=== PATIENT | female | born 1955 | race Caucasian/White ===

== ENCOUNTER → 2018-02-07 | Day surgery (SDC) | payer OTHER ==
[~2018-02-07] MED LIST: ACETAMINOPHEN 1000 MG/100 ML 100 ML IV ONE; ACETAMINOPHEN/CODEINE 300MG - 30MG TAB ONE; ASPIRIN81 MG; BLACK COHOSH160 MG; CALCIUM WITH V1 EAC2; CLONAZEPAM1 MG PO; CYMBALTA30 MG; DESFLURANE 240 ML BTL INH ONE; DEXAMETHASONE SOD PHOS INJ 4 MG/ML VIAL ONE; EPHEDRINE SULFATE INJ 50 MG/10 ML SYR ONE; EPINEPHRINE HCL INJ 1 MG/ML AMP ONE; FENTANYL CITRATE/PF 100MCG/2 ML INJ ONE; FISH OIL 1,0001 EAC2; FLONASE; FROVA2.5 MG; GLYCOPYRROLATE INJ 1MG/ 5 ML SYR ONE; HYDROCODON-ACE1 EAC9; LIDOCAINE 1% W/EPINEPHRINE 20 ML VIAL ONE; LIDOCAINE HCL (LTA) 4 ML SOLN ONE; LIDOCAINE HCL 2% JELLY 5 ML TUBE ONE; LIDOCAINE HCL 2% LOCAL INJ 5 ML SDV VIAL INJ ONE; LIPITOR20 MG; LOSARTAN POTASS25 MG; MIDAZOLAM HCL 2 MG/2 ML VIAL ONE; MULTIVITAMINS1 EAC7; NEOSTIGMINE 5 MG/5ML SYR ONE; NEXIUM40 MG; NORTRIPTYLINE H25 MG; OFLOXACIN 0.3% (OTIC SOL) 5 ML BTL OT ONE; ONDANSETRON HCL INJ 2 MG/ML VIAL ONE; PROPOFOL IV EMULSION 10 MG/ML 20 ML VIAL ONE; PROPRANOLOL HCL40 MG PO; ROCURONIUM BROMIDE 10 MG/ML 5ML VIAL ONE; SOMA350 MG PO; SYNTHROID75 MCG PO; TOPAMAX25 MG; VICOPROFEN
--- NOTE | 2018-02-07 08:14 | Pre Op History & Physical ---
CHIEF COMPLAINT: Right otitis media, chronic sinusitis, nasal obstruction. HISTORY OF PRESENT ILLNESS: This 62-year-old female has had a cough for about 2 months. Patient also complained of blockage in her ear for about a month. The patient has right tinnitus. She denies any vertigo. Patient has nasal obstruction, postnasal drip discharge from her nose. Her condition has been treated with topical nasal steroid, decongestant, antibiotics with no improvement. A CT scan of paranasal sinuses done before surgery showed the patient has pansinusitis involving the maxillary, frontal and ethmoid sinuses. Deviated septum to the left side was also noted. Effusion was also noted in the right mastoid area. An audiogram that was done showed the patient has left-sided mild to moderate sensorineural hearing loss, right side with moderate to severe sensorineural hearing loss which is mixed type. Speech discrimination 100% bilaterally. Patient has a normal tympanogram on the left and a flat tympanogram on the right. REVIEW OF SYSTEMS: Showed no recent cardiovascular, respiratory or GI problem. PAST MEDICAL HISTORY: Patient has history of hypertension. PAST SURGICAL HISTORY: Patient has previous ovarian cyst removed, carpal tunnel release, knee scope, back surgery, shoulder surgery, tooth surgery. ALLERGIES: PENICILLIN AND DARVOCET. MEDICATIONS: She is on Nexium, Synthroid, , Lipitor, Flonase, Cymbalta, Topamax, propranolol, clonazepam, hydrocodone, Frova, Soma, nitroglycerin, Vicoprofen, baby aspirin, black cohosh. SOCIAL HISTORY: Nonsmoker, nondrinker. FAMILY HISTORY: Noncontributory. PHYSICAL EXAMINATION VITAL SIGNS: Within normal limits. EARS: Shows mucoid effusion on the right side with normal TM on the left. NOSE: Hypertrophy of inferior turbinate. THROAT: Oropharynx and oral cavity showed 2+ tonsils bilaterally with no exudate or debris. NECK: No lymph node or thyroid palpable. CHEST: Good entry bilaterally. CARDIOVASCULAR: S1, S2. No murmur noted. Mrs. Gallo has chronic sinusitis nasal, obstruction and right otitis media which has been resistant to conservative therapy. The suggested treatment is endoscopic sinus surgery, septoplasty, resection of inferior turbinate, possible biopsy of nasopharynx and myringotomy and tubes on the right ear, possible bilateral myringotomy tubes and other necessary procedures. Complication of procedure includes but not limited to bleeding, infection, CSF leak, blindness, double vision, meningitis, septal perforation, septal hematoma, persistent nasal obstruction, persistent nasal crusting, nasal deformity, recurrence of the sinus problem along with TM perforation, persistent drainage from the ear, hearing loss, recurrence of the ear infection. The alternative would be continued observation, continued antibiotic therapy, topical nasal steroid therapy, systemic steroid therapy, decongestant and myringotomy and tubes in the office setting. The patient and her have elected to undergo the surgical procedure. Job#: [id number] DG cc:CHUYITA BEST MD
--- NOTE | 2018-02-07 12:50 | Operative Report ---
DATE OF PROCEDURE: February 07, 2018 CHIEF COMPLAINT: Chronic sinusitis, nasal obstruction, right chronic otitis media. POSTOPERATIVE DIAGNOSES: 1. Chronic sinusitis. 2. Nasal obstruction. 3. Right chronic otitis media. TITLE OF PROCEDURES: 1. Bilateral exploration of the nasofrontal recess area. 2. Bilateral anterior and posterior ethmoidectomy. 3. Bilateral maxillary sinus antrostomy. 4. Bilateral resection of polyps from the maxillary antrum. 5. Bilateral sphenoidectomy. 6. Septoplasty. 7. Biopsy of the nasopharynx on the right side. 8. Examination under anesthesia of the ear with right myringotomy and tubes. ANESTHESIA: Anesthesiology group. INDICATIONS: This 62-year-old female has a few months' history of decreased hearing in the right ear with tinnitus. The patient also has postnasal drip discharge from her nose and chronic cough. Her condition has been treated with antibiotics, topical nasal steroid, decongestant with no improvement. On examination she was noted to have serous effusion on the right ear, a normal TM on the left. Patient was noted to have hypertrophy of the inferior turbinate on both sides. CT scan of paranasal sinuses done before surgery showed the patient has pansinusitis on the right side involving every single sinus on the right and ethmoid and maxillary sinus involvement on the left. A deviated nasal septum on the left side was also noted. It was decided that endoscopic sinus surgery, right myringotomy and tubes, and examination under anesthesia and other necessary procedures would be beneficial for her. PROCEDURE: Patient was taken to the operating room, put under general anesthesia, endotracheally intubated. Nose was injected with 1% Xylocaine with 1:100,000 epinephrine for hemostasis. Epinephrine-soaked pledget was inserted into the nose and subsequently removed. The left paranasal sinuses were approached first. Middle turbinate was medialized. Using the Entellus device, the nasofrontal recess area was entered. The area was irrigated with copious amount of normal saline. Debris and tissue were irrigated out. The bulla ethmoidalis was entered. Anterior and posterior ethmoid sinuses were dissected in a systematic fashion. Polypoid tissue was noted in both the anterior and posterior ethmoid sinus area. Care was taken during dissection to ascertain the orbit was not entered. Sphenoid sinus was entered through a natural ostium. This was enlarged using a microshaver. Polypoid changes in the sphenoid sinus were dissected using the microshaver. Using a curved probe, the natural ostium of the maxillary sinus was entered. This was enlarged anteriorly and posteriorly using a backbiting Ld-Cut forceps respectively. Polyps in the maxillary antrum were dissected using the operating Ld-Cut forceps. The right paranasal sinuses were approached. The middle turbinate was medialized. Some mucopus was noted coming from the posterior ethmoid area. Using the Entellus device, the frontal sinus was entered. The nasofrontal recess area was dilated with the balloon. The frontal sinus was irrigated with copious amount of normal saline. Debris and tissue were irrigated out. No obvious mucopus was noted coming during the irrigation. The bulla ethmoidalis was entered. Anterior and posterior ethmoid sinuses were dissected in a systematic fashion. Polypoid tissue was noted in both the anterior and posterior ethmoid sinus area. Care was taken during dissection to ascertain that the orbit was not entered. The sphenoid sinus was entered through the natural ostium. This was enlarged using a microshaver. Polypoid changes in the sphenoid sinus were dissected using the microshaver. Using a curved probe, the natural ostium of the maxillary sinus was entered. This was enlarged anteriorly and posteriorly using a backbiting Ld-Cut forceps respectively. Mucopus was noted coming from the maxillary sinus. Using a 120-degree tip of the microshaver, the maxillary antrum was dissected. The septoplasty was performed. A septal spur was addressed. An incision was made on the left side of the septum on the spur. A superior and inferior flap was elevated. The collagenous spur was removed using a Burdett elevator and bony spur using a 4 mm straight chisel. The mucoperichondrial flap was reapproximated and kept in place with a Nasopore. The hemitransfixion incision was not made. Nasopore was inserted into the sinus cavities on either side. This was done to prevent synechiae formation and for hemostasis. The myringotomy and tubes were performed. The right ear was examined. The ear canal was debrided. A myringotomy was done in the anterior and superior quadrant. Serous effusion was suctioned out. An Barfield grommet tube was inserted. A similar procedure was carried on in the left side after the ear canal was debrided. A myringotomy was not performed because no effusion was noted in the middle ear cleft. The left TM was not disturbed. The patient tolerated the above procedure well with estimated blood loss about 30 mL. She was given 20 mg of Decadron intraoperatively. Patient was able to be transferred to the recovery room in stable condition. Job#: [id number] EV
== END | disposition home or self-care (01) ==
LOC: OR 08:52
PROVIDERS: ATTEND Otolaryngology Otolaryngology/Facial Plastic Surgery
DX: J32.0 Chronic maxillary sinusitis (principal); J32.2 Chronic ethmoidal sinusitis; J32.1 Chronic frontal sinusitis; J32.3 Chronic sphenoidal sinusitis; H65.21 Chronic serous otitis media, right ear; J34.2 Deviated nasal septum; J33.8 Other polyp of sinus; J34.3 Hypertrophy of nasal turbinates; J34.89 Other specified disorders of nose and nasal sinuses; G89.29 Other chronic pain; E03.9 Hypothyroidism, unspecified; K21.9 Gastro-esophageal reflux disease without esophagitis; I10 Essential (primary) hypertension; F41.9 Anxiety disorder, unspecified; Z88.6 Allergy status to analgesic agent; Z88.0 Allergy status to penicillin; Z01.810 Encounter for preprocedural cardiovascular examination; Z79.82 Long term (current) use of aspirin
CPT/HCPCS: 30520; 31253; 31267; 31288; 42999; 69436; 88305; 93005; J0171; J1100; J2001 ×2; J2250; J2405; J3490